=== PATIENT | male | born 1955 | race Caucasian/White ===

== ENCOUNTER 2016-08-13 06:27 | Inpatient (IN) | payer MEDICAID, OTHER ==
[2016-08-12 16:24] VITALS: BMI 25.0
[~2016-08-13] VITALS: Ht 165.1 cm; Wt 71.8 kg
[2016-08-13] VITALS (31 sets, daily range): BP systolic 94–167; BP diastolic 52–90; PULSE 52–119; RESP 7–23; Ht 165.1 cm; Wt 71.8 kg
[~2016-08-13 06:27] MED LIST: CEFT1PIG2 IVPB; FER325 PO; HYDR-3498 PO; LEVO50TA71 PO; LORA0.5T PO; MEGE40TA PO; METR500T14 PO; MIDO5TAB19 PO; MIRT-30 PO; URSO300C21 PO; ZOLP5TAB PO
[2016-08-13] MEDS: SOD CHLORIDE 0.45% 1,000 ML IV SCH ×2 (07:00→14:02)
[2016-08-13 07:18] LABS: ADD SCAN DIFF NO
[2016-08-13 07:30] LABS: BASOPHILS % 0.3 % (0.0-2.0); EOSINOPHILS # 0.3 10^3/ul (0.0-0.5); EOSINOPHILS % 3.7 % (0.0-7.0); HEMATOCRIT 45.8 % (42.0-52.0); HEMOGLOBIN 14.5 g/dl (14.0-18.0); LYMPHOCYTES # 4.1 10^3/ul (0.8-2.9); LYMPHOCYTES % 44.3 % (15.0-51.0); MEAN CORPUSCULAR HEMOGLOBIN 25.7 pg (29.0-33.0); MEAN CORPUSCULAR HGB CONC 31.7 g/dl (32.0-37.0); MEAN CORPUSCULAR VOLUME 81.1 fl (82.0-101.0); MEAN PLATELET VOLUME 10.6 fl (7.4-10.4); MONOCYTE # 0.5 10^3/ul (0.3-0.9); MONOCYTES % 5.4 % (0.0-11.0); NEUTROPHIL # 4.2 10^3/ul (1.6-7.5); NEUTROPHILS % 45.8 % (39.0-77.0); PLATELET COUNT 229 10^3/UL (140-415); RED BLOOD COUNT 5.65 10^6/ul (4.70-6.10); RED CELL DISTRIBUTION WIDTH 13.9 % (11.5-14.5); WHITE BLOOD COUNT 9.2 10^3/ul (4.8-10.8)
[2016-08-13 07:38] LABS: INR 1.05; PROTIME 13.7 Sec (12.2-14.2); PT RATIO 1.1
[2016-08-13 07:40] LABS: CHLORIDE 100 mmol/L (97-110)
[2016-08-13 07:42] LABS: CHOLESTEROL 225 mg/dl (100-200)
[2016-08-13 07:43] LABS: ANION GAP 15 (8-16); CARBON DIOXIDE 28 mmol/L (21-31); CHOL/HDL RATIO 8.6 RATIO; HDL CHOLESTEROL 26 mg/dl (30-78)
[2016-08-13 07:47] LABS: PARTIAL THROMBOPLASTIN TIME 24.4 Sec (25.0-35.0)
[2016-08-13 07:50] LABS: POTASSIUM 4.3 mmol/L (3.5-5.1); SODIUM 139 mmol/L (135-144)
[2016-08-13 07:52] LABS: GLUCOSE 406 mg/dl (70-220)
[2016-08-13 07:53] LABS: CALCIUM 9.6 mg/dl (8.4-10.2)
[2016-08-13] MEDS ORDERED: IODIXANOL LOCM 100 ML BTL ONE (07:57)
[2016-08-13] MEDS ORDERED: LIDOCAINE 1% (MDV) 20 ML INJ ONE (07:57)
[2016-08-13 07:58] LABS: BLOOD UREA NITROGEN 29 mg/dl (7-20)
[2016-08-13] MEDS ORDERED: VERAPAMIL 5 MG INJ ONE (07:58)
[2016-08-13] MEDS ORDERED: HEPARIN 1000 UNITS/ML 10 ML INJ ONE (07:58)
[2016-08-13] MEDS ORDERED: NITROGLYCERIN (IC) 100 MCG/ML INJ ONE (07:58)
[2016-08-13 07:59] LABS: CREATININE 1.44 mg/dl (0.61-1.24)
[2016-08-13 08:01] LABS: TRIGLYCERIDES 620 mg/dl (0-149)
[2016-08-13] MEDS ORDERED: INSU300I SQ (08:39)
[2016-08-13] MEDS ORDERED: METF1000 PO (08:39)
[2016-08-13] MEDS ORDERED: AMLO-145 PO (08:39)
[2016-08-13] MEDS ORDERED: ASPIRIN ORAL (08:39)
[2016-08-13] MEDS ORDERED: GLIP5TAB13 PO (08:39)
[2016-08-13] MEDS ORDERED: SITA25TA3 PO (08:39)
[2016-08-13] MEDS ORDERED: BENA10TA48 PO (08:39)
[2016-08-13] MEDS ORDERED: FENTAnyl 50 MCG/ML VIAL ONE (09:10)
[2016-08-13] MEDS ORDERED: MIDAZOLAM 1 MG/ML 2 ML INJ ONE (09:10)
[2016-08-13] MEDS ORDERED: INSULIN REGULAR, HUMAN 100 UNIT/1 ML 3ML VIAL SC ONE (09:30)
--- NOTE | 2016-08-13 10:08 | RADRPT ---
PROCEDURE: XR Chest. CLINICAL INDICATION: Preoperative. Coronary artery disease. TECHNIQUE: Single frontal view. COMPARISON: 11/12/2014. FINDINGS: The left arm PICC line has been removed. The lungs are clear. The heart size is normal. There is calcification in the aorta consistent with atherosclerosis. There is no pleural effusion. There is no pneumothorax. IMPRESSION: 1. Left arm PICC line removed. 2. Atherosclerosis. 3. Clear lungs. RPTAT: QQ .Aman Mathew MD, MD Date Time Electronically viewed and signed by .Aman Mathew MD, MD on 08/13/2016 10:08 .R/
[2016-08-13] MEDS ORDERED: SOD CHLORIDE 0.9% 1,000 ML IV SCH (10:53)
[2016-08-13] MEDS ORDERED: morphine 2 MG INJ IV PRN (11:00)
[2016-08-13] MEDS ORDERED: ONDANSETRON 4 MG INJ IV PRN (11:00)
[2016-08-13] MEDS ORDERED: AL HYDROX/MG HYDROX/SIMETH 30 ML CUP PO PRN (11:00)
[2016-08-13] MEDS ORDERED: ACETAMINOPHEN 325 MG TAB PO PRN (11:00)
--- NOTE | 2016-08-13 11:19 | CARRPT ---
DATE OF PROCEDURE: 08/13/2016 TYPE OF PROCEDURE: 1. Left heart catheterization. 2. Coronary angiography. 3. Measurement of left ventricular end diastolic pressure. ATTENDING PHYSICIAN: Anel Benjamin MD REFERRING PHYSICIAN: Self-referred. INDICATION: Preoperative evaluation in a patient with positive stress test findings for anterior is chemia, high risk marker for cardiovascular events. TYPE OF ANESTHESIA: Conscious and local. BRIEF HISTORY AND HOSPITAL COURSE: Mr. Branch is a 61-year-old male with a history of hypertension, d yslipidemia, diabetes mellitus who initially presented with complaints of substernal chest pain in p reoperative evaluation. Patient subsequently underwent a cardiac stress test revealing positive ant erior ischemia. Given these findings, the patient was referred for and presents today in order to [facility] left heart catheterization to assess for the possibility of significant obstructive coronary artery disease with symptoms of chest pain and subsequent positive stress test findings. PROCEDURE: After informed consent was obtained, the patient was brought to the [facility] cardiac catheterization lab where his right radial area was prepped and draped in usual jaqueline rile fashion. Lidocaine 2% was infiltrated over the right radial area in order to achieve adequate local anesthesia. Using the modified Seldinger technique, the radial artery was cannulated and a 6- Montenegrin arterial sheath was placed. A 6-Montenegrin JL3 catheter was used to cannulate the left main tevin nary ostium. With contrast injection, multiple views of the left coronary arterial system were obta ined. The JL3 was removed over the guidewire and a JR4 was used to cannulate the right coronary art erial ostium. With contrast injection, multiple views of the right coronary arterial system were ob tained. The JR4 was removed over a guidewire, and the JL had initially crossed the LV, where left v entricular end-diastolic pressure had been measured and pulled back across the aortic valve to asses s for significant gradient, which there was not and removed. Subsequently, given the fact that the patient had renal failure at this time, the procedure was now terminated. This completed the proced ure and there were no noted complications. FINDINGS: The patient's sheaths and wires were removed. The patient had a TR band applied. There w ere no noted complications. FINDINGS: Coronary angiography: Left main 4 mm, no significant stenoses. Circumflex proximally is a 3 mm ves kal and has a 60% stenosis. There are several mid branching obtuse marginals x4 with ostial stenosi s in the second branch up to approximately 30% to 40%. He has a codominant vessel and therefore giv es off a left-sided PDA 2.5 mm with a 40% stenosis. The LAD proximally is a 3.5 mm vessel and its p roximal portion shortly after takeoff has a very focal 90% stenosis. There are 2 mid branching diag onals, each approximately 2 mm with no significant focal stenoses. The right coronary artery is a s mall vessel, nondominant, and its midportion has a stenosis up to approximately 95% diffusely throug hout its mid portion. Measurement of left ventricular end diastolic pressure of 12 to 14; no significant aortic stenosis b y gradient. TOTAL FLUOROSCOPY TIME: 5.6 minutes. TOTAL CONTRAST: 70 mL. IMPRESSION: 1. Two vessel obstructive coronary artery disease. 2. Normal left heart filling pressures. 3. No significant aortic stenosis by gradient. RECOMMENDATIONS: In light of procedure and findings at this time would: 1. The patient will be admitted to telemetry floor for treatment of acute renal failure and hypergl ycemia. 2. Patient will be scheduled for a repeat trip to the lab when the patient's creatinine has improve d and blood sugars have improved in order to undergo a PTCA and stent placement to obstructive lesio ns in the LAD and right coronary artery. Dictated By: ANEL CUMMINGS/MOLINA Conf#: [id number] DID#: [id number] CC: DARWIN COLLINS MD;*EndCC*
[2016-08-13] MEDS ORDERED: LORAZEPAM 0.5 MG TAB PO PRN (15:00)
--- NOTE | 2016-08-13 15:00 | RADRPT ---
Vent Rate: 78 bpm RR Interval: 0 msec DC Interval: 136 msec QRS Duration: 84 msec QT Interval: 404 msec QTC Interval: 460 msec P-R-T [place]: 46 - -10 - 175 degrees Sinus rhythm with frequent premature ventricular complexes Anterior infarct , age undetermined ST amp; T wave abnormality, consider inferolateral ischemia Abnormal ECG Electronically Signed By: Flaivo Vasquez [id number]
[2016-08-13] MEDS ORDERED: GLUCOSE GEL 15 GRAM TUBE PO PRN ×2 (15:30)
[2016-08-13] MEDS ORDERED: GLUCOSE GEL 15 GRAM TUBE BUCCAL PRN (15:30)
[2016-08-13] MEDS ORDERED: DEXTROSE 50% 50 ML SYRINGE IV PRN ×2 (15:30)
[2016-08-13] MEDS ORDERED: GLUCAGON 1 MG INJ IM PRN (15:30)
[2016-08-13] MEDS: INSULIN ASPART [NOVOLOG] 3 ML PEN SC SCH ×3 (15:41→20:16)
--- NOTE | 2016-08-13 18:52 | QN ---
Documentation Comment hp dictated DARWIN COLLINS MD Aug 13, 2016 18:52
[2016-08-13] MEDS ORDERED: ZOLPIDEM 5 MG TAB PO PRN (19:00)
[2016-08-13] MEDS: FERROUS SULFATE (EC) 325 MG TAB PO SCH (20:11)
[2016-08-13] MEDS: MEGESTROL 40 MG TAB PO SCH (20:11)
[2016-08-13] MEDS: MIRTAZAPINE 15 MG TAB PO SCH (20:27)
--- NOTE | 2016-08-13 21:29 | CONS ---
DATE OF ADMISSION: 08/13/2016 DATE OF CONSULTATION: HISTORY OF PRESENT ILLNESS: The patient is a 61-year-old male with history of CAD, history of ejection fraction 60%, diabetes mellitus. The patient has a history of anemia, history of blood transfusion. The patient previously also has history of abnormal LFT in the past. Underwent coronary angiogram and noted to have electrolyte imbalance, so patient is admitted for further management. The patient's catheterization finding shows 2-vessel obstructive coronary artery disease. Normal left heart filling pressure. No significant aortic stenosis by gradient. The patient will be admitted to telemetry floor for treatment of acute renal failure and hyperglycemia. The patient is supposed to have a repeat The patient will undergo PTCA and stent placement to obstructive lesion in the LAD and right coronary artery, at a later time. The patient denies any chest pain, palpitations at this point. The patient had laboratory data done shows hematocrit 45.8, BUN 29, creatinine 1.44, glucose 406. PAST MEDICAL HISTORY: Positive for diabetes, hypertension, CAD, history of anemia, history of blood transfusion. ALLERGY HISTORY: NEGATIVE. FAMILY HISTORY: Noncontributory. SOCIAL HISTORY: Negative. MEDICATIONS: 1. Amlodipine. 2. Benazepril. 3. Rocephin. 4. Iron sulfate. 5. Glipizide. 6. Insulin. 7. Levothyroxine. 8. Lorazepam. 9. Megace. 10. Metformin. 11. Metronidazole. 12. ss insulin 13. Remeron. 14. Januvia. 15. ativan. 16. Ambien. 17. Aspirin. REVIEW OF SYSTEMS: HEENT: Unremarkable. RESPIRATORY: Unremarkable. CARDIOVASCULAR: Unremarkable. ABDOMEN: Unremarkable. EXTREMITIES: No swelling. PHYSICAL EXAMINATION: GENERAL: The patient is awake, alert. VITAL SIGNS: Pulse 60, blood pressure 97/52. HEAD: Atraumatic, normocephalic. Pupils equal, reactive to light. NECK: Supple. No JVD. LUNGS: Clear. CARDIOVASCULAR: S1, S2 normal. ABDOMEN: Soft, nontender. Bowel sounds present. No palpable mass. EXTREMITIES: No cyanosis, clubbing, or edema. CENTRAL NERVOUS SYSTEM: The patient is awake, alert, no focal deficit. LABORATORY DATA: Hematocrit 45.8. The patient has sodium 139, potassium 4.3, BUN 29, creatinine 1.44. IMPRESSION: 1. Acute kidney injury. 2. Status post coronary angiogram. 3. Obstructive coronary artery disease. 4. Diabetes mellitus. PLAN: At this point is to obtain urine sodium and creatinine. Urine albumin- creatinine ratio, IV fluid. Ultrasound of kidney. Sliding scale. Orders were done. Thank you, Dr. Benjamin, for kindly asking me to see this patient in consultation. Dictated By: DARWIN COLLINS MD BS/NTS Conf#: [id number] DID#: [id number] CC: ANEL BENJAMIN MD;*EndCC* MTDD
[2016-08-14] VITALS (12 sets, daily range): BP systolic 93–130; BP diastolic 52–78; PULSE 60–70; RESP 17–20
[2016-08-14 00:17] LABS: ADD UMIC NO; URINE BILIRUBIN (Dip) NEGATIVE (NEGATIVE); URINE BLOOD (Dip) NEGATIVE (NEGATIVE); URINE COLOR LT. YELLOW (YELLOW); URINE KETONES (Dip) NEGATIVE (NEGATIVE); URINE LEUKOCYTE ESTERASE (Dip) NEGATIVE (NEGATIVE); URINE NITRITE (Dip) NEGATIVE (NEGATIVE); URINE TOTAL PROTEIN (Dip) NEGATIVE (NEGATIVE); URINE UROBILINOGEN (Dip) 0.2 E.U./dL (0.1-1.0)
[2016-08-14 01:10] LABS: PROTEIN URINE 8.6 mg/dl (0.0-9.9)
[2016-08-14 01:11] LABS: PROTEIN/CREAT RATIO 0.27 RATIO
--- NOTE | 2016-08-14 07:38 | RADRPT ---
PROCEDURE: US KIDNEYS AND BLADDER CLINICAL INDICATION: Renal insufficiency TECHNIQUE: Sonographic evaluation of the kidneys and bladder was performed using a curved array tr ansducer. COMPARISON: None. FINDINGS: Right kidney measures 11.4 cm in length. Left kidney measures 10.5 cm in length. Mild bilateral cortical thinning and echogenicity suggestive of medical renal disease. nonobstructiv e stones are seen in both kidneys, largest on the right measuring 6 mm in largest on the left measur ing 5 mm. No hydronephrosis bilaterally. The incompletely distended bladder is grossly unremarkable. Bilateral ureteral jets are seen. IMPRESSION: Nonobstructive calcifications seen in both kidneys. No hydronephrosis. Mild bilateral cortical thinning and echogenicity suggestive of medical renal disease. RPTAT:PP .Ortiz Corea MD, Date Time Electronically viewed and signed by .Ortiz Corea MD, on 08/14/2016 07:38 .V/
[2016-08-14 08:01] LABS: ADD SCAN DIFF NO
[2016-08-14] MEDS: FERROUS SULFATE (EC) 325 MG TAB PO SCH ×2 (08:05→21:02)
[2016-08-14] MEDS: LEVOTHYROXINE 50 MCG TAB PO SCH (08:05)
[2016-08-14] MEDS: MEGESTROL 40 MG TAB PO SCH ×3 (08:06→21:03)
[2016-08-14] MEDS: URSODIOL 300 MG CAP PO SCH ×3 (08:06→17:22)
[2016-08-14] MEDS: INSULIN GLARGINE [LANtus] 3 ML PEN SC SCH (08:08)
[2016-08-14] MEDS: INSULIN ASPART [NOVOLOG] 3 ML PEN SC SCH ×4 (08:09→21:10)
[2016-08-14 08:14] LABS: BASOPHILS % 0.2 % (0.0-2.0); EOSINOPHILS # 0.3 10^3/ul (0.0-0.5); EOSINOPHILS % 3.5 % (0.0-7.0); HEMATOCRIT 40.7 % (42.0-52.0); HEMOGLOBIN 12.8 g/dl (14.0-18.0); LYMPHOCYTES # 4.1 10^3/ul (0.8-2.9); LYMPHOCYTES % 42.7 % (15.0-51.0); MEAN CORPUSCULAR HEMOGLOBIN 25.5 pg (29.0-33.0); MEAN CORPUSCULAR HGB CONC 31.4 g/dl (32.0-37.0); MEAN CORPUSCULAR VOLUME 81.1 fl (82.0-101.0); MONOCYTE # 0.4 10^3/ul (0.3-0.9); MONOCYTES % 4.6 % (0.0-11.0); NEUTROPHIL # 4.7 10^3/ul (1.6-7.5); NEUTROPHILS % 48.6 % (39.0-77.0); PLATELET COUNT 176 10^3/UL (140-415); RED BLOOD COUNT 5.02 10^6/ul (4.70-6.10); RED CELL DISTRIBUTION WIDTH 14.2 % (11.5-14.5); WHITE BLOOD COUNT 9.6 10^3/ul (4.8-10.8)
[2016-08-14 08:44] LABS: ALBUMIN 3.2 g/dl (3.3-4.9)
[2016-08-14 08:47] LABS: ALBUMIN/GLOBULIN RATIO 0.88; BILIRUBIN,INDIRECT 0.3 mg/dl (0-1.1); BILIRUBIN,TOTAL 0.3 mg/dl (0.2-1.3); CREATININE 1.08 mg/dl (0.61-1.24); TOTAL PROTEIN 6.8 g/dl (6.1-8.1)
[2016-08-14 08:48] LABS: CALCIUM 8.5 mg/dl (8.4-10.2)
[2016-08-14] MEDS ORDERED: AMLODIPINE 5 MG TAB PO SCH (09:00)
--- NOTE | 2016-08-14 13:13 | CONS ---
Date/Time of Note Date/Time of Note DATE: 08/14/16 TIME: 13:04 Assessment/Plan Assessment/Plan Chief Complaint/Hosp Course IMp: 1.CAD-obstructive by cath yesterday but due to renal function/failure/ hyperglycemia not able to perform PTCA/stent 2. Abnormal MPI-anterior ischemia-high risk marker and has obstructive LAD lesion by cath 3.HTN 4.ARF-improving with IVF hydration and follow for development of contrast induced nephropathy 5.DM with uncontrolled blood sugars 6. Dyslipidemia-with elevated triglycerides and inability to calculate triglycerides Recc: -Tele -IVF hydration -Mucomyst -Follow renal function closely -Hold Norvasc and start low dose BB as tolerated given cad obstructive -Improve control of BS and appreciate diabetic education/consult -start statin low dose and then likely lopid/trcior -[facility] with PTCA stent to LAD and possible RCA tenatively scheduled for tomorrow AM if psychotherapist social worker/BS stable improved Problems: Consultation Date/Type/Reason Admit Date/Time Aug 13, 2016 at 10:59 Initial Consult Date 08/13/2016 Type of Consultation: Cardiology Reason for Consultation cad/abnl mpi Referring Provider: DARWIN COLLINS MD Exam/Review of Systems Vital Signs Vitals Vital Signs Date Time Temp Pulse Resp B/P Pulse Ox O2 Delivery O2 Flow Rate FiO2 08/14/16 12:15 60 08/14/16 05:31 97.4 17 93/52 96 08/13/16 12:56 Room Air Intake and Output 08/13/16 08/13/16 08/14/16 15:00 23:00 07:00 Intake Total 350 ml Balance 350 ml Exam Review of Systems: CONSTITUTIONAL: No fevers, chills. PULMONARY: No sob CARDIOVASCULAR: No chest pain/palpitations GASTROINTESTINAL: No nausea/vomiting. GENITOURINARY: No hematuria/dysuria. MUSCULOSKELETAL: No myagias/arthalgias. PSYCHIATRIC: The patient denies depression. NEUROLOGIC: No weakness Constitutional: alert, oriented Psych: no complaints Head: normocephalic ENMT: mucosa pink and moist Neck: jvd (8 cm water), supple Respiratory: clear to auscultation Cardiovascular: regular rate and rhythm Gastrointestinal: non-tender, soft Musculoskeletal: muscle tone (normal) Extremities: edema (none) Neurological: other (No focal deficits) Results Result Diagram: 08/14/16 0635 08/14/16 0635 Results 24 hrs Laboratory Tests Test 08/13/16 13:07 08/13/16 17:36 08/13/16 19:32 08/13/16 23:30 Bedside Glucose 309 H 296 H 244 H Urine Color LT. YELLOW Urine Clarity CLEAR Urine pH 5.5 Urine Specific [place] <=1.005 L Urine Ketones NEGATIVE Urine Nitrite NEGATIVE Urine Bilirubin NEGATIVE Urine Urobilinogen 0.2 E.U./dL Urine Leukocyte Esterase NEGATIVE Urine Hemoglobin NEGATIVE Urine Random Creatinine 31.79 Urine Random Sodium 31 Urine Protein/Creatinine Ratio 0.27 Urine Glucose 0.25% H Urine Total Protein NEGATIVE Test 08/14/16 06:35 08/14/16 07:29 08/14/16 11:57 White Blood Count 9.6 Red Blood Count 5.02 Hemoglobin 12.8 L Hematocrit 40.7 L Mean Corpuscular Volume 81.1 L Mean Corpuscular Hemoglobin 25.5 L Mean Corpuscular Hemoglobin Concent 31.4 L Red Cell Distribution Width 14.2 Platelet Count 176 # Mean Platelet Volume 11.0 H Neutrophils % 48.6 Lymphocytes % 42.7 Monocytes % 4.6 Eosinophils % 3.5 Basophils % 0.2 Nucleated Red Blood Cells % 0.0 Neutrophils # 4.7 Lymphocytes # 4.1 H Monocytes # 0.4 Eosinophils # 0.3 Basophils # 0.0 Nucleated Red Blood Cells # 0.0 Sodium Level 137 Potassium Level 4.0 Chloride Level 106 Carbon Dioxide Level 26 Anion Gap 9 # Blood Urea Nitrogen 22 H Creatinine 1.08 Glucose Level 223 #H Calcium Level 8.5 Total Bilirubin 0.3 Direct Bilirubin 0.00 Indirect Bilirubin 0.3 Aspartate Amino Transf (AST/SGOT) 40 Alanine Aminotransferase (ALT/SGPT) 32 Alkaline Phosphatase 104 Total Protein 6.8 Albumin 3.2 L Globulin 3.60 H Albumin/Globulin Ratio 0.88 Bedside Glucose 205 197 Medications Medications Current Medications Sodium Chloride (1/2 NS) 1,000 ml @ 25 mls/hr Q24H IV ; Start 08/13/16 at 07:00 ; Stop 08/14/16 at 22:59 Acetaminophen (Tylenol Tab) 650 mg Q4H PRN PO NON-CARDIAC PAIN LEVEL (1-3); Start 08/13/16 at 11:00 Morphine Sulfate (morphine) 2 mg Q2H PRN IV FOR NON CARDIAC PAIN (4-10); Start 08/13/16 at 11:00 Al Hydrox/Mg Hydrox/Simethicone (Mag-Al Plus) 30 ml Q4H PRN PO GASTROINTESTINAL UPSET; Start 08/13/16 at 11:00 Ondansetron HCl (Zofran Inj) 4 mg Q4H PRN IV NAUSEA AND/OR VOMITING; Start at 11:00 Amlodipine Besylate (Norvasc) 5 mg DAILY PO Last administered on 08/14/16 09: 32; Admin Dose 5 MG; Start 08/14/16 at 09:00 Ferrous Sulfate (Ferrous Sulfate (Ec)) 325 mg BID PO Last administered on 08:05; Admin Dose 325 MG; Start 08/13/16 at 21:00 Lorazepam (Ativan) 0.5 mg BID PRN PO ANXIETY; Start 08/13/16 at 15:00 Megestrol Acetate (Megace) 10 mg TID PO Last administered on 08/14/16 12:30; Admin Dose 10 MG; Start 08/13/16 at 21:00 Miscellaneous Information 1 ea NOTE XX ; Start 08/13/16 at 15:30 Glucose (Glutose) 15 gm Q15M PRN PO DECREASED GLUCOSE; Start 08/13/16 at 15:30 Glucose (Glutose) 22.5 gm Q15M PRN PO DECREASED GLUCOSE; Start 08/13/16 at 15: 30 Dextrose (D50w Syringe) 25 ml Q15M PRN IV DECREASED GLUCOSE; Start 08/13/16 at 15:30 Dextrose (D50w Syringe) 50 ml Q15M PRN IV DECREASED GLUCOSE; Start 08/13/16 at 15:30 Glucagon (Glucagen) 1 mg Q15M PRN IM DECREASED GLUCOSE; Start 08/13/16 at 15:30 Glucose (Glutose) 15 gm Q15M PRN BUCCAL DECREASED GLUCOSE; Start 08/13/16 at 15 :30 Mirtazapine (Remeron) 15 mg HS PO Last administered on 08/13/16 20:27; Admin Dose 15 MG; Start 08/13/16 at 21:00 Zolpidem Tartrate (Ambien) 5 mg HS PRN PO INSOMNIA; Start 08/13/16 at 19:00 Insulin Glargine (Lantus) 15 unit DAILY@08 SC Last administered on 08/14/16t 08 :08; Admin Dose 15 UNIT; Start 08/14/16 at 08:00 ANEL RAMIREZ Aug 14, 2016 13:13
[2016-08-14] MEDS: ACETYLCYSTEINE 600 MG CAP PO SCH ×2 (14:37→21:02)
--- NOTE | 2016-08-14 20:15 | PN ---
Date/Time of Note Date/Time of Note DATE: 08/14/16 TIME: 20:14 Assessment/Plan VTE Prophylaxis VTE Prophylaxis Intervention: other Lines/Catheters IV [facility] Urinary Cath still in place: No Assessment/Plan Chief Complaint/Hosp Course IMPRESSION: 1. Acute kidney injury.better 2. Status post coronary angiogram. 3. Obstructive coronary artery disease. 4. Diabetes mellitus.better plan iv fluid cath am Problems: Subjective 24 Hr Interval Summary Respiratory: no complaints Cardiovascular: no complaints Exam/Review of Systems Vital Signs Vitals Vital Signs Date Time Temp Pulse Resp B/P Pulse Ox O2 Delivery O2 Flow Rate FiO2 08/14/16 16:19 61 08/14/16 16:00 97.7 18 120/69 97 Room Air Intake and Output 08/13/16 08/13/16 08/14/16 15:00 23:00 07:00 Intake Total 350 ml Balance 350 ml Exam Respiratory: clear to auscultation Cardiovascular: regular rate and rhythm Gastrointestinal: soft Musculoskeletal: nl extremities to inspection Extremities: normal pulses Results Result Diagram: 08/14/16 0635 08/14/16 0635 Results 24 hrs Laboratory Tests Test 08/13/16 23:30 08/14/16 06:35 08/14/16 07:29 08/14/16 11:57 Urine Color LT. YELLOW Urine Clarity CLEAR Urine pH 5.5 Urine Specific [place] <=1.005 L Urine Ketones NEGATIVE Urine Nitrite NEGATIVE Urine Bilirubin NEGATIVE Urine Urobilinogen 0.2 E.U./dL Urine Leukocyte Esterase NEGATIVE Urine Hemoglobin NEGATIVE Urine Random Creatinine 31.79 Urine Random Sodium 31 Urine Protein/Creatinine Ratio 0.27 Urine Glucose 0.25% H Urine Total Protein NEGATIVE White Blood Count 9.6 Red Blood Count 5.02 Hemoglobin 12.8 L Hematocrit 40.7 L Mean Corpuscular Volume 81.1 L Mean Corpuscular Hemoglobin 25.5 L Mean Corpuscular Hemoglobin Concent 31.4 L Red Cell Distribution Width 14.2 Platelet Count 176 # Mean Platelet Volume 11.0 H Neutrophils % 48.6 Lymphocytes % 42.7 Monocytes % 4.6 Eosinophils % 3.5 Basophils % 0.2 Nucleated Red Blood Cells % 0.0 Neutrophils # 4.7 Lymphocytes # 4.1 H Monocytes # 0.4 Eosinophils # 0.3 Basophils # 0.0 Nucleated Red Blood Cells # 0.0 Sodium Level 137 Potassium Level 4.0 Chloride Level 106 Carbon Dioxide Level 26 Anion Gap 9 # Blood Urea Nitrogen 22 H Creatinine 1.08 Glucose Level 223 #H Calcium Level 8.5 Total Bilirubin 0.3 Direct Bilirubin 0.00 Indirect Bilirubin 0.3 Aspartate Amino Transf (AST/SGOT) 40 Alanine Aminotransferase (ALT/SGPT) 32 Alkaline Phosphatase 104 Total Protein 6.8 Albumin 3.2 L Globulin 3.60 H Albumin/Globulin Ratio 0.88 Bedside Glucose 205 197 Test 08/14/16 17:19 Bedside Glucose 247 H Medications Medications Current Medications Sodium Chloride (1/2 NS) 1,000 ml @ 25 mls/hr Q24H IV ; Start 08/13/16 at 07:00 ; Stop 08/14/16 at 22:59 Acetaminophen (Tylenol Tab) 650 mg Q4H PRN PO NON-CARDIAC PAIN LEVEL (1-3); Start 08/13/16 at 11:00 Morphine Sulfate (morphine) 2 mg Q2H PRN IV FOR NON CARDIAC PAIN (4-10); Start 08/13/16 at 11:00 Al Hydrox/Mg Hydrox/Simethicone (Mag-Al Plus) 30 ml Q4H PRN PO GASTROINTESTINAL UPSET; Start 08/13/16 at 11:00 Ondansetron HCl (Zofran Inj) 4 mg Q4H PRN IV NAUSEA AND/OR VOMITING; Start at 11:00 Ferrous Sulfate (Ferrous Sulfate (Ec)) 325 mg BID PO Last administered on 08:05; Admin Dose 325 MG; Start 08/13/16 at 21:00 Lorazepam (Ativan) 0.5 mg BID PRN PO ANXIETY; Start 08/13/16 at 15:00 Megestrol Acetate (Megace) 10 mg TID PO Last administered on 08/14/16 12:30; Admin Dose 10 MG; Start 08/13/16 at 21:00 Miscellaneous Information 1 ea NOTE XX ; Start 08/13/16 at 15:30 Glucose (Glutose) 15 gm Q15M PRN PO DECREASED GLUCOSE; Start 08/13/16 at 15:30 Glucose (Glutose) 22.5 gm Q15M PRN PO DECREASED GLUCOSE; Start 08/13/16 at 15: 30 Dextrose (D50w Syringe) 25 ml Q15M PRN IV DECREASED GLUCOSE; Start 08/13/16 at 15:30 Dextrose (D50w Syringe) 50 ml Q15M PRN IV DECREASED GLUCOSE; Start 08/13/16 at 15:30 Glucagon (Glucagen) 1 mg Q15M PRN IM DECREASED GLUCOSE; Start 08/13/16 at 15:30 Glucose (Glutose) 15 gm Q15M PRN BUCCAL DECREASED GLUCOSE; Start 08/13/16 at 15 :30 Mirtazapine (Remeron) 15 mg HS PO Last administered on 08/13/16 20:27; Admin Dose 15 MG; Start 08/13/16 at 21:00 Zolpidem Tartrate (Ambien) 5 mg HS PRN PO INSOMNIA; Start 08/13/16 at 19:00 Insulin Glargine (Lantus) 15 unit DAILY@08 SC Last administered on 08/14/16 08 :08; Admin Dose 15 UNIT; Start 08/14/16 at 08:00 Acetylcysteine (Nac) 600 mg BID PO Last administered on 08/14/16 14:37; Admin Dose 600 MG; Start 08/14/16 at 13:30 Metoprolol Tartrate (Lopressor) 12.5 mg BID PO ; Start 08/14/16 at 21:00 Diazepam (Valium) 5 mg OC ONCE PO ; Start 08/15/16 at 07:00; Stop 08/15/16 at 07:01 Diphenhydramine HCl (Benadryl) 50 mg OC ONCE PO ; Start 08/15/16 at 07:00; Stop 08/15/16 at 07:01 DARWIN COLLINS MD Aug 14, 2016 20:15
[2016-08-14] MEDS: MIRTAZAPINE 15 MG TAB PO SCH (21:02)
[2016-08-14] MEDS: METOPROLOL 25 MG TAB PO SCH (21:06)
[2016-08-15] VITALS (16 sets, daily range): BP systolic 88–131; BP diastolic 52–86; PULSE 63–99; RESP 10–21
[2016-08-15] MEDS ORDERED: DIPHENHYDRAMINE 50 MG CAP PO ONE (07:00)
[2016-08-15] MEDS ORDERED: DIAZEPAM 5 MG TAB PO ONE (07:00)
[2016-08-15] MEDS: LEVOTHYROXINE 50 MCG TAB PO SCH (07:30)
[2016-08-15] MEDS: URSODIOL 300 MG CAP PO SCH ×3 (07:43→18:14)
[2016-08-15] MEDS: INSULIN ASPART [NOVOLOG] 3 ML PEN SC SCH ×4 (08:00→21:15)
[2016-08-15] MEDS: INSULIN GLARGINE [LANtus] 3 ML PEN SC SCH (08:10)
[2016-08-15 08:18] LABS: ADD SCAN DIFF NO
[2016-08-15 08:23] LABS: BASOPHILS % 0.3 % (0.0-2.0); EOSINOPHILS # 0.3 10^3/ul (0.0-0.5); EOSINOPHILS % 3.5 % (0.0-7.0); HEMATOCRIT 43.2 % (42.0-52.0); HEMOGLOBIN 13.5 g/dl (14.0-18.0); LYMPHOCYTES # 3.5 10^3/ul (0.8-2.9); LYMPHOCYTES % 43.6 % (15.0-51.0); MEAN CORPUSCULAR HEMOGLOBIN 25.6 pg (29.0-33.0); MEAN CORPUSCULAR HGB CONC 31.3 g/dl (32.0-37.0); MEAN CORPUSCULAR VOLUME 81.8 fl (82.0-101.0); MEAN PLATELET VOLUME 10.9 fl (7.4-10.4); MONOCYTE # 0.4 10^3/ul (0.3-0.9); MONOCYTES % 5.2 % (0.0-11.0); NEUTROPHIL # 3.7 10^3/ul (1.6-7.5); NEUTROPHILS % 46.8 % (39.0-77.0); PLATELET COUNT 194 10^3/UL (140-415); RED BLOOD COUNT 5.28 10^6/ul (4.70-6.10); RED CELL DISTRIBUTION WIDTH 14.4 % (11.5-14.5); WHITE BLOOD COUNT 7.9 10^3/ul (4.8-10.8)
[2016-08-15 08:38] LABS: INR 0.96; PROTIME 12.8 Sec (12.2-14.2)
[2016-08-15 08:45] LABS: CREATININE 1.18 mg/dl (0.61-1.24)
[2016-08-15 08:46] LABS: CALCIUM 9.1 mg/dl (8.4-10.2)
[2016-08-15] MEDS: MEGESTROL 40 MG TAB PO SCH ×3 (09:00→21:12)
[2016-08-15] MEDS: METOPROLOL 25 MG TAB PO SCH ×2 (09:00→21:12)
[2016-08-15] MEDS: FERROUS SULFATE (EC) 325 MG TAB PO SCH ×2 (09:00→21:11)
[2016-08-15] MEDS: ACETYLCYSTEINE 600 MG CAP PO SCH ×2 (09:00→21:12)
--- NOTE | 2016-08-15 10:29 | RADRPT ---
PROCEDURE: XR Chest. CLINICAL INDICATION: CHF TECHNIQUE: PA and lateral views of the chest were obtained. COMPARISON: Chest x-ray from 08/13/2016. FINDINGS: The heart and mediastinum are within normal limits. There is slightly increased prominence of hazy opacity at the right lung base due to atelectasis and / or infiltrate. On the lateral view, there is a poorly circumscribed lobulated lesion measuring 6 .1 x 3.3 cm projecting over the anterior aspect of the lung bases and substernal soft tissues which is nonspecific and is likely outside the lungs. The aortic arch is calcified. There is no significant pleural effusion or pneumothorax. Osseous and soft tissue structures are unremarkable. IMPRESSION: Increased prominence of a hazy opacity at the right lung base due to subsegmental atelectasis and / or infiltrate. Poorly circumscribed lobulated opacity measuring up to 6.1 cm projecting over the anterior aspect of the lung bases and substernal soft tissues is nonspecific and likely outside the lungs. RPTAT: EE Physician Eugenio Date Time Electronically viewed and signed by Physician Eugenio on 08/15/2016 10:29 RA/
[2016-08-15] MEDS ORDERED: LIDOCAINE 1% (MDV) 20 ML INJ ONE (13:22)
[2016-08-15] MEDS ORDERED: VERAPAMIL 5 MG INJ ONE (13:22)
[2016-08-15] MEDS ORDERED: NITROGLYCERIN (IC) 100 MCG/ML INJ ONE (13:22)
[2016-08-15] MEDS ORDERED: IODIXANOL LOCM 100 ML BTL ONE ×2 (13:22→14:34)
[2016-08-15] MEDS ORDERED: HEPARIN 1000 UNITS/ML 10 ML INJ ONE ×2 (13:22→13:23)
[2016-08-15] MEDS ORDERED: IODIXANOL LOCM 50 ML BTL ONE (13:23)
[2016-08-15] MEDS ORDERED: FENTAnyl 50 MCG/ML VIAL ONE (13:24)
[2016-08-15] MEDS ORDERED: MIDAZOLAM 1 MG/ML 2 ML INJ ONE (13:24)
[2016-08-15] MEDS ORDERED: BIVALIRUDIN 250MG /NS 50 ML 50 ML IVPB ONE (13:51)
[2016-08-15] MEDS ORDERED: SOD CHLORIDE 0.9% 500 ML ONE (14:00)
--- NOTE | 2016-08-15 14:02 | RADRPT ---
Vent Rate: 63 bpm RR Interval: 0 msec SD Interval: 128 msec QRS Duration: 92 msec QT Interval: 388 msec QTC Interval: 397 msec P-R-T [place]: 45 - -12 - 154 degrees Normal sinus rhythm Cannot rule out Anterior infarct , age undetermined ST amp; T wave abnormality, consider inferolateral ischemia Abnormal ECG Electronically Signed By: Flavio Vasquez [id number]
[2016-08-15] MEDS ORDERED: CLOPIDOGREL 300 MG TAB ONE (15:05)
[2016-08-15] MEDS ORDERED: ASPIRIN 325 MG TAB ONE (15:05)
[2016-08-15] MEDS ORDERED: SOD CHLORIDE 0.9% 1,000 ML IV SCH (15:19)
--- NOTE | 2016-08-15 15:25 | CONS ---
Date/Time of Note Date/Time of Note DATE: 08/15/16 TIME: 15:24 Assessment/Plan Assessment/Plan Chief Complaint/Hosp Course IMp: 1.CAD-obstructive by cath yesterday but due to renal function/failure/ hyperglycemia not able to perform PTCA/stent 2. Abnormal MPI-anterior ischemia-high risk marker and has obstructive LAD lesion by cath 3.HTN 4.ARF-improving with IVF hydration and follow for development of contrast induced nephropathy 5.DM with uncontrolled blood sugars 6. Dyslipidemia-with elevated triglycerides and inability to calculate triglycerides Recc: -Tele -IVF hydration -Mucomyst -Follow renal function closely -Continue BB as tolerated given cad obstructive -Improve control of BS and appreciate diabetic education/consult -Continue statin -LHC with PTCA stent to LAD/RCA today Problems: Consultation Date/Type/Reason Admit Date/Time Aug 15, 2016 at 11:40 Initial Consult Date 08/13/2016 Type of Consultation: Cardiology Reason for Consultation CAD/Pre-op Referring Provider: DARWIN COLLINS MD Exam/Review of Systems Vital Signs Vitals Vital Signs Date Time Temp Pulse Resp B/P Pulse Ox O2 Delivery O2 Flow Rate FiO2 08/15/16 12:07 65 08/15/16 07:51 98.3 19 131/72 99 08/15/16 04:00 Room Air Intake and Output 08/14/16 08/14/16 08/15/16 15:00 23:00 07:00 Intake Total 480 ml Output Total 1500 ml Balance -1020 ml Exam Review of Systems: CONSTITUTIONAL: No fevers, chills. PULMONARY: No sob CARDIOVASCULAR: No chest pain/palpitations GASTROINTESTINAL: No nausea/vomiting. GENITOURINARY: No hematuria/dysuria. MUSCULOSKELETAL: No myagias/arthalgias. PSYCHIATRIC: The patient denies depression. NEUROLOGIC: No weakness Constitutional: alert Psych: no complaints Head: normocephalic ENMT: mucosa pink and moist Respiratory: clear to auscultation Cardiovascular: regular rate and rhythm Gastrointestinal: non-tender, soft Musculoskeletal: muscle tone (normal) Extremities: edema Neurological: other (no focal deficits) Results Result Diagram: 08/15/16 0700 08/15/16 0700 Results 24 hrs Laboratory Tests Test 08/14/16 17:19 08/14/16 21:00 08/15/16 02:25 08/15/16 05:43 Bedside Glucose 247 H 236 H 256 H 236 H Test 08/15/16 07:00 08/15/16 08:00 08/15/16 12:05 White Blood Count 7.9 Red Blood Count 5.28 Hemoglobin 13.5 L Hematocrit 43.2 Mean Corpuscular Volume 81.8 L Mean Corpuscular Hemoglobin 25.6 L Mean Corpuscular Hemoglobin Concent 31.3 L Red Cell Distribution Width 14.4 Platelet Count 194 Mean Platelet Volume 10.9 H Neutrophils % 46.8 Lymphocytes % 43.6 Monocytes % 5.2 Eosinophils % 3.5 Basophils % 0.3 Nucleated Red Blood Cells % 0.0 Neutrophils # 3.7 Lymphocytes # 3.5 H Monocytes # 0.4 Eosinophils # 0.3 Basophils # 0.0 Nucleated Red Blood Cells # 0.0 Prothrombin Time 12.8 Prothrombin Time Ratio 1.0 INR International Normalized Ratio 0.96 Sodium Level 138 Potassium Level 4.0 Chloride Level 106 Carbon Dioxide Level 25 Anion Gap 11 Blood Urea Nitrogen 21 H Creatinine 1.18 Glucose Level 271 H Calcium Level 9.1 Bedside Glucose 231 H 247 H Medications Medications Current Medications Acetaminophen (Tylenol Tab) 650 mg Q4H PRN PO NON-CARDIAC PAIN LEVEL (1-3); Start 08/13/16 at 11:00 Morphine Sulfate (morphine) 2 mg Q2H PRN IV FOR NON CARDIAC PAIN (4-10); Start 08/13/16 at 11:00 Al Hydrox/Mg Hydrox/Simethicone (Mag-Al Plus) 30 ml Q4H PRN PO GASTROINTESTINAL UPSET; Start 08/13/16 at 11:00 Ondansetron HCl (Zofran Inj) 4 mg Q4H PRN IV NAUSEA AND/OR VOMITING; Start at 11:00 Ferrous Sulfate (Ferrous Sulfate (Ec)) 325 mg BID PO Last administered on 21:02; Admin Dose 325 MG; Start 08/13/16 at 21:00 Lorazepam (Ativan) 0.5 mg BID PRN PO ANXIETY; Start 08/13/16 at 15:00 Megestrol Acetate (Megace) 10 mg TID PO Last administered on 08/14/16 21:03; Admin Dose 10 MG; Start 08/13/16 at 21:00 Miscellaneous Information 1 ea NOTE XX ; Start 08/13/16 at 15:30 Glucose (Glutose) 15 gm Q15M PRN PO DECREASED GLUCOSE; Start 08/13/16 at 15:30 Glucose (Glutose) 22.5 gm Q15M PRN PO DECREASED GLUCOSE; Start 08/13/16 at 15: 30 Dextrose (D50w Syringe) 25 ml Q15M PRN IV DECREASED GLUCOSE; Start 08/13/16 at 15:30 Dextrose (D50w Syringe) 50 ml Q15M PRN IV DECREASED GLUCOSE; Start 08/13/16 at 15:30 Glucagon (Glucagen) 1 mg Q15M PRN IM DECREASED GLUCOSE; Start 08/13/16 at 15:30 Glucose (Glutose) 15 gm Q15M PRN BUCCAL DECREASED GLUCOSE; Start 08/13/16 at 15 :30 Mirtazapine (Remeron) 15 mg HS PO Last administered on 08/14/16 21:02; Admin Dose 15 MG; Start 08/13/16 at 21:00 Zolpidem Tartrate (Ambien) 5 mg HS PRN PO INSOMNIA; Start 08/13/16 at 19:00 Acetylcysteine (Nac) 600 mg BID PO Last administered on 08/14/16 21:02; Admin Dose 600 MG; Start 08/14/16 at 13:30 Metoprolol Tartrate (Lopressor) 12.5 mg BID PO Last administered on 08/14/16 21:06; Admin Dose 12.5 MG; Start 08/14/16 at 21:00 Insulin Glargine (Lantus) 18 unit DAILY@08 SC ; Start 08/16/16 at 08:00 ANEL RAMIREZ Aug 15, 2016 15:25
[2016-08-15] MEDS ORDERED: morphine 2 MG INJ IV PRN (15:30)
[2016-08-15] MEDS ORDERED: ACETAMINOPHEN 325 MG TAB PO PRN (15:30)
[2016-08-15] MEDS ORDERED: ONDANSETRON 4 MG INJ IV PRN (15:30)
[2016-08-15] MEDS ORDERED: OXYCODONE/ACETAMINOPHEN (5/325) TAB PO PRN (15:30)
[2016-08-15] MEDS ORDERED: AL HYDROX/MG HYDROX/SIMETH 30 ML CUP PO PRN (15:30)
--- NOTE | 2016-08-15 15:54 | CONS ---
Date/Time of Note Date/Time of Note DATE: 08/15/16 TIME: 15:53 Consultation Date/Type/Reason Admit Date/Time Aug 15, 2016 at 11:40 Initial Consult Date Type of Consultation: Nephrology Reason for Consultation Dr Collins Referring Provider: DARWIN COLLINS MD Exam/Review of Systems Vital Signs Vitals Vital Signs Date Time Temp Pulse Resp B/P Pulse Ox O2 Delivery O2 Flow Rate FiO2 08/15/16 12:07 65 08/15/16 07:51 98.3 19 131/72 99 08/15/16 04:00 Room Air Intake and Output 08/14/16 08/14/16 08/15/16 15:00 23:00 07:00 Intake Total 480 ml Output Total 1500 ml Balance -1020 ml Exam unable to see pt , he is on procedure cardiac cath Results Result Diagram: 08/15/16 0700 08/15/16 0700 Results 24 hrs Laboratory Tests Test 08/14/16 17:19 08/14/16 21:00 08/15/16 02:25 08/15/16 05:43 Bedside Glucose 247 H 236 H 256 H 236 H Test 08/15/16 07:00 08/15/16 08:00 08/15/16 12:05 White Blood Count 7.9 Red Blood Count 5.28 Hemoglobin 13.5 L Hematocrit 43.2 Mean Corpuscular Volume 81.8 L Mean Corpuscular Hemoglobin 25.6 L Mean Corpuscular Hemoglobin Concent 31.3 L Red Cell Distribution Width 14.4 Platelet Count 194 Mean Platelet Volume 10.9 H Neutrophils % 46.8 Lymphocytes % 43.6 Monocytes % 5.2 Eosinophils % 3.5 Basophils % 0.3 Nucleated Red Blood Cells % 0.0 Neutrophils # 3.7 Lymphocytes # 3.5 H Monocytes # 0.4 Eosinophils # 0.3 Basophils # 0.0 Nucleated Red Blood Cells # 0.0 Prothrombin Time 12.8 Prothrombin Time Ratio 1.0 INR International Normalized Ratio 0.96 Sodium Level 138 Potassium Level 4.0 Chloride Level 106 Carbon Dioxide Level 25 Anion Gap 11 Blood Urea Nitrogen 21 H Creatinine 1.18 Glucose Level 271 H Calcium Level 9.1 Bedside Glucose 231 H 247 H Medications Medications Current Medications Acetaminophen (Tylenol Tab) 650 mg Q4H PRN PO NON-CARDIAC PAIN LEVEL (1-3); Start 08/13/16 at 11:00 Morphine Sulfate (morphine) 2 mg Q2H PRN IV FOR NON CARDIAC PAIN (4-10); Start 08/13/16 at 11:00 Al Hydrox/Mg Hydrox/Simethicone (Mag-Al Plus) 30 ml Q4H PRN PO GASTROINTESTINAL UPSET; Start 08/13/16 at 11:00 Ondansetron HCl (Zofran Inj) 4 mg Q4H PRN IV NAUSEA AND/OR VOMITING; Start at 11:00 Ferrous Sulfate (Ferrous Sulfate (Ec)) 325 mg BID PO Last administered on 21:02; Admin Dose 325 MG; Start 08/13/16 at 21:00 Lorazepam (Ativan) 0.5 mg BID PRN PO ANXIETY; Start 08/13/16 at 15:00 Megestrol Acetate (Megace) 10 mg TID PO Last administered on 08/14/16 21:03; Admin Dose 10 MG; Start 08/13/16 at 21:00 Miscellaneous Information 1 ea NOTE XX ; Start 08/13/16 at 15:30 Glucose (Glutose) 15 gm Q15M PRN PO DECREASED GLUCOSE; Start 08/13/16 at 15:30 Glucose (Glutose) 22.5 gm Q15M PRN PO DECREASED GLUCOSE; Start 08/13/16 at 15: 30 Dextrose (D50w Syringe) 25 ml Q15M PRN IV DECREASED GLUCOSE; Start 08/13/16 at 15:30 Dextrose (D50w Syringe) 50 ml Q15M PRN IV DECREASED GLUCOSE; Start 08/13/16 at 15:30 Glucagon (Glucagen) 1 mg Q15M PRN IM DECREASED GLUCOSE; Start 08/13/16 at 15:30 Glucose (Glutose) 15 gm Q15M PRN BUCCAL DECREASED GLUCOSE; Start 08/13/16 at 15 :30 Mirtazapine (Remeron) 15 mg HS PO Last administered on 08/14/16 21:02; Admin Dose 15 MG; Start 08/13/16 at 21:00 Zolpidem Tartrate (Ambien) 5 mg HS PRN PO INSOMNIA; Start 08/13/16 at 19:00 Acetylcysteine (Nac) 600 mg BID PO Last administered on 08/14/16 21:02; Admin Dose 600 MG; Start 08/14/16 at 13:30 Metoprolol Tartrate (Lopressor) 12.5 mg BID PO Last administered on 08/14/16 21:06; Admin Dose 12.5 MG; Start 08/14/16 at 21:00 Insulin Glargine (Lantus) 18 unit DAILY@08 SC ; Start 08/16/16 at 08:00 Aspirin (Ecotrin) 325 mg DAILY PO ; Start 08/16/16 at 09:00 Clopidogrel Bisulfate (plaVIX) 75 mg DAILY PO ; Start 08/16/16 at 09:00 Acetaminophen (Tylenol Tab) 650 mg Q4H PRN PO NON-CARDIAC PAIN LEVEL 1-3; Start 08/15/16 at 15:30 Oxycodone/ Acetaminophen (Percocet (5/ 325)) 1 tab Q4H PRN PO REPORTED NON- CARDIAC PAIN 4-7; Start 08/15/16 at 15:30 Morphine Sulfate (morphine) 1 mg Q1H PRN IV PAIN NOT RELIEVED BY OTHERS; Start 08/15/16 at 15:30 Al Hydrox/Mg Hydrox/Simethicone (Mag-Al Plus) 30 ml Q4H PRN PO GASTROINTESTINAL UPSET; Start 08/15/16 at 15:30 Ondansetron HCl 4 mg 4 mg Q4H PRN IV NAUSEA AND/OR VOMITING; Start 08/15/16 at 15:30 Sodium Chloride (NS) 1,000 ml @ 75 mls/hr [id number] IV Last administered on 08/15 15:51; Admin Dose 75 MLS/HR; Start 08/15/16 at 15:19; Stop 08/16/16 at 04: 38 OMID LOOMIS Aug 15, 2016 15:54
--- NOTE | 2016-08-15 16:24 | CARRPT ---
DATE OF PROCEDURE: 08/15/2016 TYPE OF PROCEDURE: 1. Left heart catheterization. 2. Coronary angiography. 3. Percutaneous transluminal coronary angioplasty with placement of Synergy drug-eluting stent x1 t o ostial LAD, 3.0 x 20 mm. 4. Percutaneous transluminal coronary angioplasty with placement of Synergy drug-eluting stent 2.25 x 32 mm to right coronary artery, proximal to mid. ATTENDING PHYSICIAN: Anel Benjamin MD REFERRING PHYSICIAN: Dr. Lyles INDICATION: Preoperative evaluation with positive stress test findings and diagnostic left heart ca theterization revealing 2-vessel obstructive coronary artery disease with inability to do PTCA due t o contrast load, due to renal failure. TYPE OF ANESTHESIA: Conscious and local. BRIEF HISTORY AND HOSPITAL COURSE: Mr. Branch is a 61-year-old male with history of hypertension, dys lipidemia who initially presented with complaints of shortness of breath in preoperative state. The patient subsequently had a cardiac stress test revealing possible multivessel ischemia. The patien t was brought to the cardiac catheterization lab and underwent diagnostic cardiac catheterization re vealing 2-vessel obstructive coronary artery disease. The patient was unable to undergo PTCA and st ent placement at that time due to renal failure and contrast load. The patient was then brought [facility] in order to undergo PTCA and stent placement for treatment of obstructive coronary artery di sease in preoperative state. PROCEDURE: After informed consent was obtained, the patient was brought to the [facility] catheterization lab where his right radial area was prepped and draped in usual sterile fashion. Lidocaine 2% was infiltrated into the right radial area in order to achieve adequate anesthesia. Using modified Seldinger technique, the radial artery was cannulated and a 6-Namibian arterial sheath was placed. A 6-Namibian XB catheter was used to cannulate the left main coronary ostium. A 0.014 Ba donnie guidewire was passed distal to the lesion. The lesion was directly stented with a 3.0 x 20 mm Synergy drug-eluting stent, deployed at 14 atmospheres, postdilated with the stent delivery s ystem up to 16 atmospheres. Followup angiograms were obtained after giving 200 mcg of IC nitroglyce rin revealing an excellent result from the stent, SHANTELLE 3 flow throughout the vessel, no signs of com plication including perforation or dissection. Subsequently, at this time, the interventional guide and guidewires were removed and attention was turned to the patient's diseased right coronary arter y. A 6-Namibian right coronary guide was used to cannulate the right coronary arterial ostium. A 0.014 B alance guidewire was passed distal to the lesion. The lesion was pretreated with a 2.0 x 12 m m balloon inflated to 12 to 14 atmospheres throughout the length of the stenosis mid to proximal, an d the lesion was stented with a 2.25 x 32 mm Synergy drug-eluting stent deployed at 14 atmospheres, postdilated with the stent delivery system up to 16 atmospheres. Followup angiogram was obtained re vealing excellent result from the stent, SHANTELLE 3 flow throughout the vessel, no signs of complication including perforation or dissection. Additionally noted, there is an acute marginal that bifurcate d midway through the lesion, it did have plaque shift, but continued to have excellent flow. Subseq uently, at this time, the patient's interventional guide and guidewires were removed after followup angiograms were obtained with 200 mcg of IC nitroglycerin having been given. The patient's catheter was removed. The patient's sheath was removed. TR band was applied. There were no noted complica tions. It is additionally noted that the patient at the onset of procedure had received a radial co cktail including 200 mcg of nitroglycerin and 2.5 mg of verapamil and patient had Angiomax bolus con tinuous infusion throughout the procedure. PTCA AND STENT PLACEMENT: Prior to PTCA and stent placement within the patient's ostial proximal LA D, the patient had a 95% proximal LAD stenosis. Post-PTCA and stent placement, the patient had no r esidual stenosis, SHANTELLE 3 flow throughout the vessel, a moderate step down at the distal end of the s tent, and no signs of complication including perforation or dissection and additionally no plaque sh ift into the ostium of the circumflex, and this is a very ostially placed stent. PTCA AND STENT PLACEMENT IN THE RIGHT CORONARY ARTERY: Prior to PTCA and stent placement of the rig ht coronary artery, the patient had a 99% mid right coronary artery stenosis. Post-PTCA and stent p lacement, the patient had no residual stenosis, SHANTELLE 3 flow throughout the vessel and no signs of co mplication including perforation or dissection. Once again, had some plaque shift in acute marginal but continued to have excellent flow. TOTAL FLUOROSCOPY TIME: 11 minutes. TOTAL CONTRAST: 145 mL. IMPRESSION: Two-vessel obstructive coronary artery disease, status post successful percutaneous tra nsluminal coronary angioplasty and stent placement x1 to ostial left anterior descending with 3.0 x 20 mm Synergy drug-eluting stent and a 2.25 x 32 mm Synergy drug-eluting stent to proximal mid right coronary artery. RECOMMENDATIONS: In light of procedure and findings: 1. The patient will be maintained on Plavix 75 mg 1 tab p.o. daily indefinitely 2. Aspirin 325 mg 1 tab p.o. daily indefinitely. 3. Maximize medical management. 4. Aggressive risk factor reduction. 5. The patient will be admitted to the ICU post-intervention for continued management of his presen ting symptoms and post-stent management. ADDENDUM: The patient received Plavix 600 mg p.o. x1 and aspirin 325 mg p.o. x1 at the conclusion o f the procedure. Dictated By: ANEL CUMMINGS/MOLINA Conf#: [id number] DID#: [id number]
[2016-08-15] MEDS: MIRTAZAPINE 15 MG TAB PO SCH (21:00)
[2016-08-16] VITALS (11 sets, daily range): BP systolic 96–116; BP diastolic 56–85; PULSE 66–80; RESP 8–19
[2016-08-16 05:29] LABS: ADD SCAN DIFF NO
[2016-08-16 05:56] LABS: ANION GAP 13 (8-16)
[2016-08-16 05:57] LABS: CHOL/HDL RATIO 8.2 RATIO
[2016-08-16 06:01] LABS: BLOOD UREA NITROGEN 17 mg/dl (7-20); CALCIUM 8.8 mg/dl (8.4-10.2); CARBON DIOXIDE 22 mmol/L (21-31); CHLORIDE 107 mmol/L (97-110); CHOLESTEROL 189 mg/dl (100-200); CREATINE KINASE 58 IU/L (23-200); GLUCOSE 248 mg/dl (70-220); HDL CHOLESTEROL 23 mg/dl (30-78); POTASSIUM 4.2 mmol/L (3.5-5.1); SODIUM 138 mmol/L (135-144); TRIGLYCERIDES 377 mg/dl (0-149)
[2016-08-16 06:05] LABS: BASOPHILS % 0.3 % (0.0-2.0); EOSINOPHILS # 0.3 10^3/ul (0.0-0.5); EOSINOPHILS % 4.3 % (0.0-7.0); HEMATOCRIT 41.4 % (42.0-52.0); LYMPHOCYTES # 3.5 10^3/ul (0.8-2.9); LYMPHOCYTES % 43.7 % (15.0-51.0); MEAN CORPUSCULAR HEMOGLOBIN 25.4 pg (29.0-33.0); MEAN CORPUSCULAR HGB CONC 31.4 g/dl (32.0-37.0); MONOCYTE # 0.5 10^3/ul (0.3-0.9); MONOCYTES % 5.9 % (0.0-11.0); NEUTROPHIL # 3.6 10^3/ul (1.6-7.5); NEUTROPHILS % 45.5 % (39.0-77.0); PLATELET COUNT 192 10^3/UL (140-415); RED BLOOD COUNT 5.11 10^6/ul (4.70-6.10); RED CELL DISTRIBUTION WIDTH 14.3 % (11.5-14.5); WHITE BLOOD COUNT 7.9 10^3/ul (4.8-10.8)
[2016-08-16] MEDS: LEVOTHYROXINE 50 MCG TAB PO SCH (06:52)
--- NOTE | 2016-08-16 07:35 | PDOCDIS ---
Discharge Instructions CONDITION Patient Condition: Good HOME CARE INSTRUCTIONS: Special Diet: diabetic diet ACTIVITY: Activity Restrictions: Slowly Increase Activity FOLLOW UP/APPOINTMENTS Appointments F/U DR RAMIREZ 1 WK SEE PCP 1 WK DARWIN COLLINS MD Aug 16, 2016 07:35
[2016-08-16] MEDS ORDERED: METO-448 PO (07:40)
[2016-08-16] MEDS ORDERED: FENO48TA PO (07:40)
[2016-08-16] MEDS ORDERED: ASPI325T32 PO (07:40)
[2016-08-16] MEDS ORDERED: ATOR20TA38 PO (07:40)
[2016-08-16] MEDS ORDERED: CLOP75TA28 PO (07:40)
[2016-08-16] MEDS ORDERED: INSULIN GLARGINE [LANtus] 3 ML PEN SC SCH (08:00)
[2016-08-16] MEDS: INSULIN ASPART [NOVOLOG] 3 ML PEN SC SCH ×2 (08:14→11:30)
[2016-08-16] MEDS: FERROUS SULFATE (EC) 325 MG TAB PO SCH (08:15)
[2016-08-16] MEDS: ACETYLCYSTEINE 600 MG CAP PO SCH (08:15)
[2016-08-16] MEDS: URSODIOL 300 MG CAP PO SCH ×2 (08:15→11:30)
[2016-08-16] MEDS: METOPROLOL 25 MG TAB PO SCH (08:16)
[2016-08-16] MEDS: MEGESTROL 40 MG TAB PO SCH (08:18)
[2016-08-16] MEDS ORDERED: ASPIRIN (EC) 325 MG TAB PO SCH (09:00)
[2016-08-16] MEDS ORDERED: CLOPIDOGREL 75 MG TAB PO SCH (09:00)
[2016-08-16 10:46] LABS: CK-MB 2.56 ng/ml (0.0-2.4); TROPONIN-I < 0.012 ng/ml (0.00-0.12)
--- NOTE | 2016-08-16 11:07 | CONS ---
Date/Time of Note Date/Time of Note DATE: 08/16/16 TIME: 11:03 Assessment/Plan Assessment/Plan Additional Assessment/Plan CAD s/p PTCA stenting of LAD and RCA Hypertension Dyslipidemia Diabetes Hemodynamically stable Continue ASA and Plavix Continue Metoprolol Started on Lipitor Continue Insulin Ok fo discharge Consultation Date/Type/Reason Admit Date/Time Aug 15, 2016 at 11:40 Respiratory: no complaints Cardiovascular: no complaints Psychological: no complaints Social History Smoking Status: Never smoker Exam/Review of Systems Vital Signs Vitals Vital Signs Date Time Temp Pulse Resp B/P Pulse Ox O2 Delivery O2 Flow Rate FiO2 08/16/16 09:00 72 8 113/73 96 Room Air 08/16/16 08:00 97.9 Intake and Output 08/15/16 08/15/16 08/16/16 15:00 23:00 07:00 Intake Total 1150 ml 440 ml Output Total 300 ml 800 ml Balance 850 ml -360 ml Exam Constitutional: alert, oriented Head: atraumatic, normocephalic Eyes: EOMI, nl conjunctiva Neck: non-tender, supple Respiratory: clear to auscultation Cardiovascular: regular rate and rhythm Gastrointestinal: nl liver, spleen, soft Extremities: normal pulses Results Result Diagram: 08/16/16 0430 08/16/16 0430 Results 24 hrs Laboratory Tests Test 08/15/16 12:05 08/15/16 17:35 08/15/16 21:06 08/16/16 02:49 Bedside Glucose 247 H 165 231 H 290 H Test 08/16/16 04:30 08/16/16 07:54 White Blood Count 7.9 Red Blood Count 5.11 Hemoglobin 13.0 L Hematocrit 41.4 L Mean Corpuscular Volume 81.0 L Mean Corpuscular Hemoglobin 25.4 L Mean Corpuscular Hemoglobin Concent 31.4 L Red Cell Distribution Width 14.3 Platelet Count 192 Mean Platelet Volume 11.0 H Neutrophils % 45.5 Lymphocytes % 43.7 Monocytes % 5.9 Eosinophils % 4.3 Basophils % 0.3 Nucleated Red Blood Cells % 0.0 Neutrophils # 3.6 Lymphocytes # 3.5 H Monocytes # 0.5 Eosinophils # 0.3 Basophils # 0.0 Nucleated Red Blood Cells # 0.0 Sodium Level 138 Potassium Level 4.2 Chloride Level 107 Carbon Dioxide Level 22 Anion Gap 13 Blood Urea Nitrogen 17 Creatinine 1.10 Glucose Level 248 H Calcium Level 8.8 Creatine Kinase 58 Creatine Kinase Index 4.4 Creatinine Kinase MB (Mass) 2.56 H Troponin I < 0.012 Triglycerides Level 377 H Cholesterol Level 189 LDL Cholesterol, Calculated 91 HDL Cholesterol 23 L Cholesterol/HDL Ratio 8.2 Bedside Glucose 210 Medications Medications Current Medications Acetaminophen (Tylenol Tab) 650 mg Q4H PRN PO NON-CARDIAC PAIN LEVEL (1-3); Start 08/13/16 at 11:00 Morphine Sulfate (morphine) 2 mg Q2H PRN IV FOR NON CARDIAC PAIN (4-10); Start 08/13/16 at 11:00 Al Hydrox/Mg Hydrox/Simethicone (Mag-Al Plus) 30 ml Q4H PRN PO GASTROINTESTINAL UPSET; Start 08/13/16 at 11:00 Ondansetron HCl (Zofran Inj) 4 mg Q4H PRN IV NAUSEA AND/OR VOMITING; Start at 11:00 Ferrous Sulfate (Ferrous Sulfate (Ec)) 325 mg BID PO Last administered on 08:15; Admin Dose 325 MG; Start 08/13/16 at 21:00 Lorazepam (Ativan) 0.5 mg BID PRN PO ANXIETY; Start 08/13/16 at 15:00 Megestrol Acetate (Megace) 10 mg TID PO Last administered on 08/16/16 08:18; Admin Dose 10 MG; Start 08/13/16 at 21:00 Miscellaneous Information 1 ea NOTE XX ; Start 08/13/16 at 15:30 Glucose (Glutose) 15 gm Q15M PRN PO DECREASED GLUCOSE; Start 08/13/16 at 15:30 Glucose (Glutose) 22.5 gm Q15M PRN PO DECREASED GLUCOSE; Start 08/13/16 at 15: 30 Dextrose (D50w Syringe) 25 ml Q15M PRN IV DECREASED GLUCOSE; Start 08/13/16 at 15:30 Dextrose (D50w Syringe) 50 ml Q15M PRN IV DECREASED GLUCOSE; Start 08/13/16 at 15:30 Glucagon (Glucagen) 1 mg Q15M PRN IM DECREASED GLUCOSE; Start 08/13/16 at 15:30 Glucose (Glutose) 15 gm Q15M PRN BUCCAL DECREASED GLUCOSE; Start 08/13/16 at 15 :30 Mirtazapine (Remeron) 15 mg HS PO Last administered on 08/14/16 21:02; Admin Dose 15 MG; Start 08/13/16 at 21:00 Zolpidem Tartrate (Ambien) 5 mg HS PRN PO INSOMNIA; Start 08/13/16 at 19:00 Acetylcysteine (Nac) 600 mg BID PO Last administered on 08/16/16 08:15; Admin Dose 600 MG; Start 08/14/16 at 13:30 Metoprolol Tartrate (Lopressor) 12.5 mg BID PO Last administered on 08/16/16 08 :16; Admin Dose 12.5 MG; Start 08/14/16 at 21:00 Insulin Glargine (Lantus) 18 unit DAILY@08 SC Last administered on 08/16/16 08: 15; Admin Dose 18 UNIT; Start 08/16/16 at 08:00 Aspirin (Ecotrin) 325 mg DAILY PO Last administered on 08/16/16 08:18; Admin Dose 325 MG; Start 08/16/16 at 09:00 Clopidogrel Bisulfate (plaVIX) 75 mg DAILY PO Last administered on 08/16/16 08: 15; Admin Dose 75 MG; Start 08/16/16 at 09:00 Acetaminophen (Tylenol Tab) 650 mg Q4H PRN PO NON-CARDIAC PAIN LEVEL 1-3; Start 08/15/16 at 15:30 Oxycodone/ Acetaminophen (Percocet (5/ 325)) 1 tab Q4H PRN PO REPORTED NON- CARDIAC PAIN 4-7; Start 08/15/16 at 15:30 Morphine Sulfate (morphine) 1 mg Q1H PRN IV PAIN NOT RELIEVED BY OTHERS; Start 08/15/16 at 15:30 Al Hydrox/Mg Hydrox/Simethicone (Mag-Al Plus) 30 ml Q4H PRN PO GASTROINTESTINAL UPSET; Start 08/15/16 at 15:30 Ondansetron HCl (Zofran Inj) 4 mg Q4H PRN IV NAUSEA AND/OR VOMITING; Start at 15:30 AUGUSTINE EMERY M.D. Aug 16, 2016 11:07
--- NOTE | 2016-08-16 11:17 | RADRPT ---
Vent Rate: 80 bpm RR Interval: 0 msec MA Interval: 132 msec QRS Duration: 76 msec QT Interval: 340 msec QTC Interval: 392 msec P-R-T [place]: 51 - -14 - 149 degrees Normal sinus rhythm Cannot rule out Anterior infarct , age undetermined ST amp; T wave abnormality, consider lateral ischemia Abnormal ECG Electronically Signed By: Connor Ballesteros [id number]
--- NOTE | 2016-08-16 11:18 | RADRPT ---
Vent Rate: 71 bpm RR Interval: 0 msec [place] Interval: 126 msec QRS Duration: 82 msec QT Interval: 374 msec QTC Interval: 406 msec P-R-T [place]: 55 - -19 - 142 degrees Normal sinus rhythm Cannot rule out Anterior infarct , age undetermined ST amp; T wave abnormality, consider lateral ischemia Abnormal ECG Electronically Signed By: Connor Ballesteros [id number]
[2016-08-16] MEDS ORDERED: ATORVASTATIN 40 MG TAB PO SCH (21:00)
== END 2016-08-16 12:15 | disposition home or self-care (01) | DRG 983 ==
LOC: SDS 06:27 → MS4 10:59 → SDS 10:59 → MS4 13:59 → OBSVTOIN 08-15 11:40 → ICU 08-15 15:57
PROVIDERS: ADMIT Internal Medicine; ATTEND Internal Medicine
PROC: B211YZZ Fluoroscopy of Multiple Coronary Arteries using Other Contrast (ICD-10-PCS; 2016-08-13)
PROC: 4A023N7 Measurement of Cardiac Sampling and Pressure, Left Heart, Percutaneous Approach (ICD-10-PCS; 2016-08-13 09:00)
PROC: B211YZZ Fluoroscopy of Multiple Coronary Arteries using Other Contrast (ICD-10-PCS; 2016-08-15)
PROC: 027135Z Dilation of Coronary Artery, Two Arteries with Two Drug-eluting Intraluminal Devices, Percutaneous Approach (ICD-10-PCS; principal; 2016-08-15 10:30)
DX: N17.9 Acute kidney failure, unspecified (principal); E11.65 Type 2 diabetes mellitus with hyperglycemia; I10 Essential (primary) hypertension; I25.10 Atherosclerotic heart disease of native coronary artery without angina pectoris; E03.9 Hypothyroidism, unspecified; E78.5 Hyperlipidemia, unspecified
CPT/HCPCS: 71010; 71020; 76775; 80048; 80053; 80061; 81003; 82550; 82553; 82570; 82962; 84300; 84484; 85025; 85610; 85730; 87081; 93005; 93454; 93458; G0378; C1725; C1769; C1874; C1887; C9600; J0583; J1644; J1815; J2250; J3010; J7030; J7040; Q9967

== ENCOUNTER 2018-08-12 06:52 | Day surgery (SDC) | payer OTHER ==
[2018-08-12] VITALS (19 sets, daily range): BP systolic 94–129; BP diastolic 60–73; PULSE 60–89; RESP 10–24; Ht 165.1 cm; Wt 69.5 kg
[~2018-08-12] VITALS: Ht 165.1 cm; Wt 69.5 kg
[~2018-08-12 06:52] MED LIST changes: +ASPI325T32 PO; +ASPIRIN ORAL; +ATOR20TA38 PO; -CEFT1PIG2 IVPB; +CLOP75TA28 PO; +FENO48TA16 PO; +GLIP5TAB13 PO; -HYDR-3498 PO; +INSU300I SQ; +METO-448 PO; -METR500T14 PO; +MIDO5TAB PO; -MIDO5TAB19 PO; +SITA25TA3 PO
[2018-08-12] MEDS ORDERED: NOVO3I SC (07:58)
[2018-08-12] MEDS ORDERED: ASPI-817 PO (07:58)
[2018-08-12] MEDS ORDERED: LANT3I SC (07:58)
[2018-08-12] MEDS ORDERED: NITR0.4T39 SL (07:58)
[2018-08-12] MEDS ORDERED: SOD CHLORIDE 0.45% 1,000 ML IV SCH (08:00)
[2018-08-12] MEDS ORDERED: DIPHENHYDRAMINE 50 MG CAP PO SCH (08:00)
[2018-08-12] MEDS ORDERED: FAMOTIDINE 20 MG TAB PO SCH (08:00)
[2018-08-12] MEDS ORDERED: DIAZEPAM 5 MG TAB PO SCH (08:00)
[2018-08-12] MEDS ORDERED: VERAPAMIL 5 MG INJ ONE (08:31)
[2018-08-12] MEDS ORDERED: HEPARIN 1000 UNITS/ML 10 ML INJ ONE (08:31)
[2018-08-12] MEDS ORDERED: LIDOCAINE 1% (MDV) 20 ML INJ ONE (08:31)
[2018-08-12] MEDS ORDERED: IODIXANOL LOCM 100 ML BTL ONE (08:31)
[2018-08-12] MEDS ORDERED: NITROGLYCERIN (IC) 100 MCG/ML INJ ONE (08:31)
[2018-08-12] MEDS ORDERED: FENTAnyl 50 MCG/ML VIAL ONE (09:36)
[2018-08-12] MEDS ORDERED: MIDAZOLAM 1 MG/ML 2 ML INJ ONE (09:36)
[2018-08-12] MEDS ORDERED: SOD CHLORIDE 0.9% 1,000 ML IV SCH (10:08)
--- NOTE | 2018-08-12 10:08 | SIPON ---
Date/Time of Note Date/Time of Note DATE: 08/12/18 TIME: 10:07 Operative Report Preoperative Diagnosis 1.abnl mpi 2.preop Postoperative Diagnosis 1.nonobstructive cad Operation/Procedure Performed 1.[facility] Surgeon see signature line career services assistant 1.Mio Anesthesia: moderate sedation Estimated blood loss: minimal Transfusion Required none Specimen none Grafts/Implants none Complications none ANEL RAMIREZ Aug 12, 2018 10:08
[2018-08-12] MEDS ORDERED: ONDANSETRON 4 MG INJ IV PRN (10:30)
[2018-08-12] MEDS ORDERED: ACETAMINOPHEN 325 MG TAB PO PRN (10:30)
[2018-08-12] MEDS ORDERED: HOLD all METFORMIN and METFORMIN CONTAINING medications for 48 hours post procedure. Chec XX ONE (10:30)
[2018-08-12] MEDS ORDERED: AL HYDROX/MG HYDROX/SIMETH 30 ML CUP PO PRN (10:30)
[2018-08-12] MEDS ORDERED: morphine 2 MG INJ IV PRN (10:30)
--- NOTE | 2018-08-12 11:32 | CARRPT ---
DATE OF PROCEDURE: 08/12/2018 TYPE OF PROCEDURE: 1. Left heart catheterization. 2. Coronary angiography. 3. Moderate conscious sedation. ATTENDING PHYSICIAN: Anel Benjamin M.D. REFERRING PHYSICIAN: Self-referred. INDICATION: Preoperative patient with history of stents and anterior ischemia by stress test, high r isk marker for cardiovascular events. TYPE OF ANESTHESIA: Conscious and local. BRIEF HISTORY AND HOSPITAL COURSE: Mr. 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 The patient subsequently had a cardiac stress test and reve aled anterior ischemia. Given these findings, the patient referred for and presents today to undergo left heart catheterization to assess possibility of significant obstruction currently notes the ches t pain and subsequent positive stress test findings. DESCRIPTION OF PROCEDURE: After informed consent was obtained, the patient was brought to the [facility] cardiac catheterization lab where his right radial area was prepped in the usu al sterile fashion, 2% lidocaine was infiltrated into the right radial area in order to achieve adequ ate anesthesia. Using the modified Seldinger technique, the radial artery was cannulated and a 6-[facility] arterial sheath was placed. A 6-[place] JL3.5 catheter was used in attempt to cannulate the left main coronary ostium successfully. A JL3 was then used to cannulate the left main coronary ostium zelaya ccessfully as [place] injection, multiple views of coronaries were obtained. JL3.5 was over a guid ewire and a JR4 was used to cannulate the right coronary arterial ostium. With contrast injection, m ultiple views of the right coronary system were obtained. JR4 was removed over a guidewire and a 6-F rench pigtail passed down the ascending aorta placed in LV. LVEDP was measured, 20 mL of contrast we re injected opacifying the left ventricle. Pulled back across the aortic valve to assess for signifi cant gradient, which there was not. Subsequently, the sheath was removed. TR band was applied. Thi s completed the procedure. There were no noted complications. FINDINGS: 1. Coronary angiography: Left main 4 mm, no significant stenoses. Circumflex proximally 3 mm with a mid body 30 to 40% stenosis. There are a paucity of obtuse marginal that bifurcated from proximal, mid and 1,2,3,4,5,6,7, obtuse marginals, which bifurcate that the second one being the largest branc h 3 mm with an ostial 20% stenosis. Remainder all sub 2 mm with no significant focal stenoses. Myke tionally, is a dominant vessel and therefore gives off a left-sided PDA 2 mm on the left side, housekeeping staff olateral branch 2 mm to further vessels, which are all widely patent with no significant stenoses. T he LAD proximally is a 3 mm vessel and has a stent in its proximal portion, which is widely patent. No significant in-stent restenosis. After the stent there is a step down and approximately a 40% to 50% stenosis. The LAD thereafter is free of focal stenoses around the apex. There are 2 mid branchi ng diagonals, 2 mm with no significant focal stenoses. The patient's right coronary artery proximall y is a 2.5 mm vessel in its ostial takeoff has approximately 50% stenosis and a long stented zone whi ch has in the mid portion in-stent restenosis up to approximately 50%. Left ventriculogram; left ventricular ejection fraction of 60-65%, left ventricular end diastolic pre ssure of 14 pre-LV gram, 16 post-LV gram, 1+ mitral regurgitation. TOTAL FLUOROSCOPY TIME: 5 minutes. TOTAL CONTRAST: 84 mL. IMPRESSION: 1. Moderate nonobstructive coronary artery disease primarily involving in-stent restenosis in the pa tient's smaller coronary artery and the mid LAD after stent in the region. RECOMMENDATIONS: In light of procedural findings at this time: 1. Maintain patient on current medical therapy. 2. The patient will be okay to proceed to a hernia surgery on current medications without further no ninvasive evaluation. 3. The patient will be readmitted to the same day surgery center with probable discharge later this afternoon. Dictated By: ANEL CUMMINGS/NTS Conf#: [id number] DID#: [id number] CC: ANEL BENJAMIN MD;*EndCC*
--- NOTE | 2018-08-12 18:53 | RADRPT ---
Vent Rate: 75 bpm RR Interval: 0 msec AR Interval: 124 msec QRS Duration: 84 msec QT Interval: 368 msec QTC Interval: 410 msec P-R-T Draper: 51 - 5 - 160 degrees Normal sinus rhythm ST & T wave abnormality, consider inferior ischemia ST & T wave abnormality, consider anterolateral ischemia Abnormal ECG Electronically Signed By: Isaac Reyes
== END 2018-08-12 13:00 | disposition home or self-care (01) ==
LOC: SDS 06:52
PROVIDERS: ATTEND Internal Medicine
DX: R94.31 Abnormal electrocardiogram [ECG] [EKG] (principal); I10 Essential (primary) hypertension; E11.9 Type 2 diabetes mellitus without complications; I25.10 Atherosclerotic heart disease of native coronary artery without angina pectoris; R07.9 Chest pain, unspecified
CPT/HCPCS: 71045; 80053; 80061; 82962; 85025; 85610; 85730; 93005; 93458; C1887; J1644; J2250; J3010; Q9967; Z7610

== ENCOUNTER 2019-03-07 20:19 | Inpatient (IN) | payer OTHER ==
[~2019-03-07] VITALS: Ht 165.1 cm; Wt 71.7 kg
[~2019-03-07 20:19] MED LIST changes: +ASPI-817 PO; -ASPI325T32 PO; -CLOP75TA28 PO; -FER325 PO; -GLIP5TAB13 PO; -INSU300I SQ; +LANT3I SC; -LORA0.5T PO; -MEGE40TA PO; -MIDO5TAB PO; -MIRT-30 PO; +NITR0.4T39 SL; +NOVO3I SC; -SITA25TA3 PO; -URSO300C21 PO; -ZOLP5TAB PO
[2019-03-07] MEDS ORDERED: SOD CHLORIDE 0.9% 1,000 ML IV STA (22:53)
[2019-03-08] MEDS ORDERED: SOD CHLORIDE 0.9% 1,000 ML IV ONE (01:34)
[2019-03-08] MEDS ORDERED: ACETAMINOPHEN 325 MG TAB PO PRN (02:00)
[2019-03-08] MEDS ORDERED: ONDANSETRON 4 MG INJ IV PRN ×2 (02:00→05:00)
[2019-03-08] MEDS ORDERED: ALBUTEROL/IPRATROPIUM (NEB) 3 ML AMP HHN PRN (05:00)
[2019-03-08] MEDS ORDERED: NACL 0.9% 3 ML SYG IV SCH (05:00)
[2019-03-08] MEDS ORDERED: morphine 2 MG INJ IV PRN (05:00)
[2019-03-08] MEDS: DEXTROSE 5%-0.45% NACL 1,000 ML IV SCH ×2 (05:05→13:58)
[2019-03-08] MEDS: HEPARIN 5,000 UNIT/1 ML VIAL SC SCH ×2 (08:25→20:13)
[2019-03-08 17:22] VITALS: Ht 165.1 cm; Wt 71.7 kg
[2019-03-08 17:32] VITALS: BP 147/78; PULSE 67; RESP 18
[2019-03-08] MEDS ORDERED: HYDROCODONE/APAP (5/325) TAB PO PRN (18:00)
[2019-03-08 20:15] VITALS: BP 127/72; PULSE 81; RESP 18
[2019-03-09] MEDS: DEXTROSE 5%-0.45% NACL 1,000 ML IV SCH ×4 (01:16→21:47)
[2019-03-09 02:06] VITALS: BP 110/66; PULSE 79; RESP 19
[2019-03-09] MEDS ORDERED: GLUCOSE GEL 15 GRAM TUBE PO PRN ×2 (03:30)
[2019-03-09] MEDS ORDERED: GLUCOSE GEL 15 GRAM TUBE BUCCAL PRN (03:30)
[2019-03-09] MEDS ORDERED: DEXTROSE 50% 50 ML SYRINGE IV PRN ×2 (03:30)
[2019-03-09] MEDS ORDERED: GLUCAGON 1 MG INJ IM PRN (03:30)
[2019-03-09] MEDS: LEVOTHYROXINE 50 MCG TAB PO SCH (06:14)
[2019-03-09 08:00] VITALS: BP 111/61; PULSE 74; RESP 16
[2019-03-09] MEDS ORDERED: INSULIN GLARGINE [LANTus] (100 UNITS/ML) SYG SC SCH (08:00)
[2019-03-09] MEDS: INSULIN ASPART [NOVOLOG] 3 ML PEN SC SCH ×4 (08:08→20:28)
[2019-03-09] MEDS: HEPARIN 5,000 UNIT/1 ML VIAL SC SCH ×2 (08:09→20:31)
[2019-03-09] MEDS ORDERED: FLU VACC QS 2019-20 (6MOS UP) 0.5 ML SYG IM* ONE (10:00)
[2019-03-09 14:00] VITALS: BP 111/67; PULSE 78; RESP 16
[2019-03-09] MEDS ORDERED: ATORVASTATIN 10 MG TAB ONE (19:32)
[2019-03-09 20:58] VITALS: BP 130/72; PULSE 64; RESP 16
[2019-03-09] MEDS ORDERED: ATORVASTATIN 20 MG TAB PO SCH (21:00)
[2019-03-10] MEDS ORDERED: DEXTROSE 5%-0.45% NACL 1,000 ML IV SCH
[2019-03-10 02:11] VITALS: BP 114/60; PULSE 67; RESP 16
[2019-03-10] MEDS: LEVOTHYROXINE 50 MCG TAB PO SCH (05:11)
[2019-03-10] MEDS ORDERED: INSULIN GLARGINE [LANTus] (100 UNITS/ML) SYG SC SCH (08:00)
[2019-03-10 08:07] VITALS: BP 110/57; PULSE 79; RESP 16
[2019-03-10] MEDS: HEPARIN 5,000 UNIT/1 ML VIAL SC SCH (08:15)
[2019-03-10] MEDS: INSULIN ASPART [NOVOLOG] 3 ML PEN SC SCH ×2 (08:20→12:12)
[2019-03-10] MEDS ORDERED: ASPIRIN (EC) 81 MG TAB PO SCH (09:00)
[2019-03-10 13:54] VITALS: BP 120/62; PULSE 70; RESP 18
[2019-03-11] MEDS ORDERED: INSULIN GLARGINE [LANTus] (100 UNITS/ML) SYG SC SCH (08:00)
== END 2019-03-10 16:27 | disposition home or self-care (01) | DRG 439 ==
LOC: E/R 20:19 → 5EC 03-08 02:57
PROVIDERS: ADMIT Internal Medicine; ATTEND Internal Medicine
DX: K85.90 Acute pancreatitis without necrosis or infection, unspecified (principal); N17.9 Acute kidney failure, unspecified; K43.9 Ventral hernia without obstruction or gangrene; N18.9 Chronic kidney disease, unspecified; K29.80 Duodenitis without bleeding; Z95.5 Presence of coronary angioplasty implant and graft; I12.9 Hypertensive chronic kidney disease with stage 1 through stage 4 chronic kidney disease, or unspecified chronic kidney disease; E11.9 Type 2 diabetes mellitus without complications
CPT/HCPCS: 36415; 74176; 80048; 80053; 80061; 81001; 81003; 82043; 82962; 83036; 83605; 83690; 83735; 84100; 84155; 84300; 85025; 90686; J1644; J1815; J7030; J7042